=== PATIENT | male | born 1990 | race Caucasian/White ===

== ENCOUNTER 2018-08-27 00:12 | Emergency (ER) | payer BC, SELFPAY ==
[2018-08-27 00:14] VITALS: BP 107/84; PULSE 97; RESP 18; TEMP 36.6; O2SAT 99; BMI 25.6
--- NOTE | 2018-08-27 00:22 | ED.VISSUMM ---
- ER Visit Summary Date of Service: 08/27/18 Chief Complaint: [tattoo redness] History of Present Illness: The patient is a 28 M [that presents with some redness around the tattoo he received on his left lower anterior extremity the past several days. He has never had a reaction to prior tattoos. No fevers, nausea, vomiting, or constitutional symptoms. He overall appears well and nontoxic. He has no other complaints. That he was at a local licensed tattoo parlor.] Physical Examination: [General: The patient appears well and in no apparent distress. Patient is resting comfortably on cart. Skin: Warm, dry, no pallor noted. Mild erythema surrounding tattoo site left lower extremity anterior and distal region of the extremity, no streaking or abscess. Head: Normocephalic, atraumatic Neck: Supple, nontender. ENT: Moist mucus membranes, pharynx within normal limits. Cardiovascular: Regular Rate and Rhythm, no gallups or rubs Respiratory: Patient is in no distress, no accessory muscle use, lungs are clear to auscultation, no wheezing, rales or rhonchi Musculoskeletal: normal ROM, no deformity, no tenderness, no swelling. 2+ radial and DP pulses symmetric. GI: No tenderness to palpation, no masses appreciated. No rebound, guarding, or rigidity noted. Neurological: A&O, normal strength and sensation. Psychiatric: Cooperative] Test Results: [] Emergency Department Course and Treatment: [Patient's presentation may be consistent with early cellulitis. I will place him on a course of Keflex and recommended follow-up with his primary provider in 48 hours for wound recheck. He was advised to return to the emergency department with any new or worsening symptoms or if unable to obtain close follow-up appointment. Patient understands and is agreeable with this plan of care. Patient was discharged home in stable condition.] Treatment Plan: [see above] Disposition: [Discharge home, stable condition] Impression: [Cellulitis LLE] This note was generated with [employer] dictation software. It may contain incorrect words, spelling, and punctuation that were not noted in review of the chart prior to signing ED Disposition - Plan for ED Patient: Disposition: Home or Assisted Living Chief Complaint: Wound Check Instructions: ED Infec Skin Cellulitis Prescriptions: Cephalexin [Keflex] 500 mg PO Q6 #40 cap Additional Instructions: Follow up with your primary physician in 2 days for wound check. Return to ER with worsening symptoms or if unable to get close follow up appointment.
[2018-08-27 00:30] VITALS: PULSE 86; RESP 16; TEMP -8.8; TEMP 16; O2SAT 98
[2018-08-27] MEDS: Cephalexin 250 MG Capsule 500 MG PO (00:31)
== END 2018-08-27 00:34 | disposition home or self-care (01) ==
PROVIDERS: Emergency Provider Emergency Medicine; Family Provider Internal Medicine; PCP Internal Medicine
DX: L03.116 Cellulitis of left lower limb (principal)
CPT/HCPCS: 99283